=== PATIENT | male | born 1945 | race Native Hawaiian/Other Pacific Islander ===

== ENCOUNTER 2018-05-30 07:22 | Outpatient (CLI) | payer OTHER ==
[~2018-05-30] VITALS: Ht 177.8 cm; Wt 134.3 kg
== END 2018-05-30 21:40 | disposition home or self-care (01) ==
LOC: NM 07:22
DX: Z01.818 Encounter for other preprocedural examination (principal); I48.91 Unspecified atrial fibrillation
CPT/HCPCS: 93306; A9500; J2785

== ENCOUNTER 2019-07-23 13:08 | Outpatient (CLI) | payer OTHER ==
[2019-07-23 13:52] LABS: PLATELET COUNT 239 K/uL (142-355)
== END 2019-07-23 20:19 | disposition home or self-care (01) ==
LOC: LAB 13:08
PROVIDERS: Nurse Practitioner Family
DX: Z00.00 Encounter for general adult medical examination without abnormal findings (principal); G89.29 Other chronic pain; E11.49 Type 2 diabetes mellitus with other diabetic neurological complication; I50.9 Heart failure, unspecified; N18.9 Chronic kidney disease, unspecified; Z79.899 Other long term (current) drug therapy; I48.91 Unspecified atrial fibrillation; I11.0 Hypertensive heart disease with heart failure
CPT/HCPCS: 80053; 80061; 82306; 83036; 84439; 84443; 85027

== ENCOUNTER 2019-07-25 10:33 | Outpatient (CLI) | payer OTHER | END 2019-07-25 19:36 | disposition home or self-care (01) | LOC: LAB 10:33 | DX: Z12.5 Encounter for screening for malignant neoplasm of prostate (principal); D64.9 Anemia, unspecified | CPT/HCPCS: 82728; 83540; 84153 ==